=== PATIENT | male | born 1955 | race Two or more races ===

== ENCOUNTER 2019-06-13 17:38 | Inpatient (IN) | payer MEDICAID ==
[~2019-06-13] VITALS: Ht 182.9 cm; Wt 110.2 kg
[2019-06-13] MEDS ORDERED: CEFEPIME HCL 1 G in IV DEXTROSE 5% 50 ML IV ONE (18:00)
[2019-06-13] MEDS ORDERED: AZITHROMYCIN IV 500 MG in IV DEXTROSE 5% 250 ML IV ONE (18:00)
[2019-06-13] MEDS ORDERED: IV NORMAL SALINE 1000 ML BAG IV ONE (18:00)
[2019-06-13] MEDS ORDERED: VANCOMYCIN IV 1,000 MG in IV DEXTROSE 5% 250 ML IV ONE (18:00)
[2019-06-13] MEDS ORDERED: ACETAMINOPHEN ES 500 MG TABLET PO ONE (18:00)
[2019-06-13] MEDS ORDERED: ACETAMINOPHEN ES 500 MG TABLET ONE (18:18)
[2019-06-13] MEDS ORDERED: AZITHROMYCIN 500MG/ D5W 250ML IVPB **ER PYXIS ONLY IV ONE (18:19)
[2019-06-13] MEDS ORDERED: CEFEPIME HCL 1 G VIAL ONE (18:19)
[2019-06-13] MEDS ORDERED: VANCOMYCIN IV 200 ML ONE (18:19)
[2019-06-13 18:20] LABS: BASOPHILS % (AUTO) 0.6 % (0.0-2.0); EOSINOPHILS % (AUTO) 0.2 % (0.0-7.0); HEMATOCRIT 49.8 % (36.7-47.1); HEMOGLOBIN 16.8 g/dL (12.5-16.3); LYMPHOCYTES # (AUTO) 0.9 K/uL (20.0-40.0); LYMPHOCYTES % (AUTO) 27.1 % (20.5-51.5); MEAN CORPUSCULAR HEMOGLOBIN 28.8 uug (23.8-33.4); MEAN CORPUSCULAR HGB CONC 34 g/dL (32.5-36.3); MEAN CORPUSCULAR VOLUME 85.7 fL (73.0-96.2); MONOCYTES # (AUTO) 0.3 K/uL (2.0-10.0); MONOCYTES % (AUTO) 8.7 % (0.0-11.0); NEUTROPHILS % (AUTO) 63.4 % (38.5-71.5); PLATELET COUNT (AUTO) 119 K/uL (152-348); RED BLOOD CELL COUNT(AUTO) 5.81 MIL/uL (4.06-5.63); WHITE BLOOD COUNT (AUTO) 3.2 K/uL (3.6-10.2)
--- NOTE | 2019-06-13 18:27 | NUR ---
No information about pt's current medications sent with pt in transfer paperwork. I called [facility] and spoke with Andie who stated she will fax the information.
[2019-06-13 18:29] LABS: CREATININE 0.9 mg/dL (0.6-1.3); POTASSIUM 3.8 mmol/L (3.5-5.1)
[2019-06-13 18:38] LABS: MAGNESIUM 1.8 mg/dL (1.8-2.4); PHOSPHOROUS 3.5 mg/dL (2.5-4.9)
[2019-06-13 18:41] LABS: BILIRUBIN,DIRECT 0.3 mg/dL (0.0-0.2); BILIRUBIN,TOTAL 0.8 mg/dL (0.2-1.0)
[2019-06-13 19:10] LABS: *BILIRUBIN,URIN 2+ (NEGATIVE); *BLOOD, URINE NEGATIVE (NEGATIVE); *KETONES,URINE 2+ (NEGATIVE); LEUKOCYTE ESTERASE ,URINE NEGATIVE (NEGATIVE); NITRITE, URINE NEGATIVE (NEGATIVE); UGLUCOSE 1+ (NEGATIVE)
--- NOTE | 2019-06-13 19:10 | NUR ---
Pt. admitted to [facility] , under care of Dr. TORREZ Belongs List completed
[2019-06-13 19:11] LABS: FERRITIN 887 ng/mL (26-388); LACTATE DEHYDROGENASE 271 U/L (85-227)
[2019-06-13 19:34] LABS: *CLARITY,URINE SLIGHTLY HAZY (CLEAR)
[2019-06-13 19:35] LABS: *COLOR,URINE Brown (YELLOW)
[2019-06-13 19:36] LABS: MUCUS,URINE MODERATE /LPF (0-FEW); RBC,URINE 0-3 /HPF (0-3); SQUAMOUS EPITHELIAL CELL,UR FEW /HPF (NONE SEEN)
[2019-06-13] MEDS ORDERED: POLY17PO4 PO (19:55)
[2019-06-13] MEDS ORDERED: DOCU-141 PO (19:55)
[2019-06-13] MEDS ORDERED: DULO60CA45 PO (19:55)
[2019-06-13] MEDS ORDERED: BISA10SU61 RC (19:55)
[2019-06-13] MEDS ORDERED: ACET325C7 PO (19:55)
[2019-06-13] MEDS ORDERED: POTA8TAB3 PO (19:55)
[2019-06-13] MEDS ORDERED: CLON0.5T PO (19:55)
[2019-06-13] MEDS ORDERED: FURO-151 PO (19:55)
[2019-06-13] MEDS ORDERED: APIX5TAB4 PO (19:55)
[2019-06-13] MEDS ORDERED: NA P133E RC (19:55)
[2019-06-13] MEDS ORDERED: MAGN400O6 PO (19:55)
[2019-06-13] MEDS ORDERED: CARB-95 PO (19:56)
[2019-06-13] MEDS ORDERED: CLON1TAB PO (19:56)
[2019-06-13] MEDS ORDERED: BUSP5TAB3 PO (19:56)
[2019-06-13] MEDS ORDERED: ENTA200T3 PO (19:56)
--- NOTE | 2019-06-13 20:15 | NUR ---
Attempted to give report, nurse not available at this time
--- NOTE | 2019-06-13 20:44 | NUR ---
2nd attempt to give report, nurse still not available
[2019-06-13] MEDS ORDERED: FLEET ENEMA 133 ML BOTTLE RC PRN (20:45)
[2019-06-13] MEDS ORDERED: BISACODYL 10 MG SUPP.RECT RC PRN (20:45)
[2019-06-13] MEDS ORDERED: MAGNESIUM HYDROXIDE 30 ML LIQUID UDC PO PRN (20:45)
[2019-06-13] MEDS ORDERED: CLONAZEPAM 0.5 MG TABLET PO PRN (20:45)
[2019-06-13] MEDS: CARBIDOPA/LEVODOPA CR 25-100MG TABLET.SA PO SCH (22:11)
[2019-06-13] MEDS: ENTACAPONE 200 MG TABLET PO SCH (22:12)
[2019-06-14 01:34] VITALS: BP 130/87
[2019-06-14 04:38] VITALS: BP 129/78
[2019-06-14] MEDS: ENTACAPONE 200 MG TABLET PO SCH ×5 (06:10→20:52)
[2019-06-14] MEDS: CARBIDOPA/LEVODOPA CR 25-100MG TABLET.SA PO SCH ×5 (06:10→20:52)
[2019-06-14] MEDS: ACETAMINOPHEN 325 MG TABLET PO PRN ×2 (06:42→12:43)
[2019-06-14] MEDS: PANTOPRAZOLE SODIUM 40 MG TABLET.DR PO SCH (07:06)
[2019-06-14 07:17] LABS: BASOPHILS % (AUTO) 0.7 % (0.0-2.0); EOSINOPHILS % (AUTO) 0.1 % (0.0-7.0); HEMATOCRIT 46.3 % (36.7-47.1); HEMOGLOBIN 15.6 g/dL (12.5-16.3); LYMPHOCYTES # (AUTO) 0.8 K/uL (20.0-40.0); LYMPHOCYTES % (AUTO) 19.4 % (20.5-51.5); MEAN CORPUSCULAR HGB CONC 34 g/dL (32.5-36.3); MEAN CORPUSCULAR VOLUME 86.1 fL (73.0-96.2); MONOCYTES # (AUTO) 0.2 K/uL (2.0-10.0); MONOCYTES % (AUTO) 5.4 % (0.0-11.0); NEUTROPHILS % (AUTO) 74.4 % (38.5-71.5); PLATELET COUNT (AUTO) 111 K/uL (152-348); RED BLOOD CELL COUNT(AUTO) 5.38 MIL/uL (4.06-5.63)
[2019-06-14 07:35] LABS: BILIRUBIN,TOTAL 0.5 mg/dL (0.2-1.0); CREATININE 1.1 mg/dL (0.6-1.3); MAGNESIUM 1.8 mg/dL (1.8-2.4); PHOSPHOROUS 2.2 mg/dL (2.5-4.9); POTASSIUM 3.9 mmol/L (3.5-5.1); TOTAL PROTEIN, SERUM 6.5 g/dL (6.4-8.2)
[2019-06-14 07:41] LABS: THYROID STIMULATING HORMONE 1.592 mIU/mL (0.358-3.740)
[2019-06-14] MEDS: DULOXETINE 60 MG CAPSULE.DR PO SCH (08:23)
[2019-06-14] MEDS: DOCUSATE SODIUM 100 MG CAPSULE PO SCH ×2 (08:24→17:09)
[2019-06-14] MEDS: FUROSEMIDE 40 MG TABLET PO SCH (08:24)
[2019-06-14] MEDS: busPIRone 5 MG TABLET PO SCH ×3 (08:24→17:09)
[2019-06-14] MEDS: MIRALAX 17 GM POWD.PACK PO SCH (08:37)
[2019-06-14] MEDS ORDERED: Medication Not On Formulary EA (Potassium Chloride 8 MEQ) PO SCH (09:00)
[2019-06-14] MEDS ORDERED: Medication Not On Formulary EA (Apixaban (Eliquis) 5 MG) PO SCH (09:00)
[2019-06-14] MEDS ORDERED: CLONAZEPAM 0.5 MG TABLET PO ONE (09:00)
--- NOTE | 2019-06-14 09:00 | NUR ---
RECEIVED PATIENT AWAKE ALERT AND AWARE DENIES PAIN OR DISCOMFORTS AT THIS TIME ON O2 AT 2L/M WITH NO SOB AT THIS TIME HAS 2 HEPLOCKS PATENT AT THIS TIME CALL LIGHTS AND PERSONAL BELONGINGS ARE WITHIN EASY REACH MADE COMFORTABLE WILL CONTINUE TO OBSERVE.
[2019-06-14] MEDS: POTASSIUM CHLORIDE 8 MEQ TAB.PRT.SR PO SCH (09:25)
[2019-06-14] MEDS: APIXABAN 5 MG TABLET PO SCH ×2 (09:29→17:18)
[2019-06-14] MEDS ORDERED: DEXTROSE 50% 50 ML DISP.SYRIN IV PRN (11:15)
[2019-06-14] MEDS ORDERED: NEUTRA PHOS PACKET PO ONE (11:15)
[2019-06-14 11:44] VITALS: BP 124/72
[2019-06-14] MEDS: glipiZIDE 5 MG TABLET PO SCH ×2 (12:38→17:26)
[2019-06-14] MEDS: INSULIN REGULAR, HUMAN 300 UNIT/3 ML VIAL SQ PRN ×3 (12:41→22:42)
[2019-06-14] MEDS: BLOOD SUGAR DIAGNOSTIC 1 EACH STRIP VI SCH ×3 (12:50→22:20)
[2019-06-14] MEDS: SOD FERRIC GLUC COMPLX/SUCROSE 125 MG in IV NORMAL SALINE 100 ML IV SCH (14:12)
[2019-06-14 15:51] VITALS: BP 120/70
[2019-06-14] MEDS: AZITHROMYCIN IV 500 MG in IV DEXTROSE 5% 250 ML IV SCH (17:09)
--- NOTE | 2019-06-14 18:00 | NUR ---
IV ATB GIVEN ORDERED TOLERATED WELL WITH NO ADVERSE OR ALLERGIC REACTIONS AT THIS TIME WILL CONTINUE TO OBSERVE
[2019-06-14 20:00] VITALS: BP 117/77
[2019-06-15] VITALS: BP 116/69
[2019-06-15 04:00] VITALS: BP 138/78
[2019-06-15] MEDS: ACETAMINOPHEN 325 MG TABLET PO PRN ×2 (07:01→17:07)
[2019-06-15] MEDS: CARBIDOPA/LEVODOPA CR 25-100MG TABLET.SA PO SCH ×5 (07:01→20:20)
[2019-06-15] MEDS: PANTOPRAZOLE SODIUM 40 MG TABLET.DR PO SCH (07:01)
[2019-06-15] MEDS: ENTACAPONE 200 MG TABLET PO SCH ×5 (07:01→20:20)
[2019-06-15] MEDS: BLOOD SUGAR DIAGNOSTIC 1 EACH STRIP VI SCH ×4 (07:08→21:04)
[2019-06-15] MEDS: glipiZIDE 5 MG TABLET PO SCH ×2 (07:50→16:23)
--- NOTE | 2019-06-15 08:00 | NUR ---
RECEIVED PATIENT AWAKE ALERT AND VERBALLY RESPONSIVE ABLE TO MAKE SIMPLE NEEDS KNOWN BUT REQUIRES MAX ASSIST FOR ALL ADL.DENIES PAIN OR DISCOMFORTS AT THIS TIME CALL LIGHTS AND PERSONAL BELONGINGS ARE WITHIN EASY REACH REMAIN ON O2 WITH NO SHORTNESS OF BREATH AT THIS TIME MADE COMFORTABLE WILL CONTINUE TO OBSERVE.
[2019-06-15] MEDS: busPIRone 5 MG TABLET PO SCH ×3 (08:10→16:24)
[2019-06-15] MEDS: POTASSIUM CHLORIDE 8 MEQ TAB.PRT.SR PO SCH (08:10)
[2019-06-15] MEDS: FUROSEMIDE 40 MG TABLET PO SCH (08:10)
[2019-06-15] MEDS: DULOXETINE 60 MG CAPSULE.DR PO SCH (08:10)
[2019-06-15] MEDS: DOCUSATE SODIUM 100 MG CAPSULE PO SCH ×2 (08:10→16:23)
[2019-06-15] MEDS: MIRALAX 17 GM POWD.PACK PO SCH (08:11)
[2019-06-15] MEDS: APIXABAN 5 MG TABLET PO SCH ×2 (08:42→16:26)
[2019-06-15 12:00] VITALS: BP 131/75
[2019-06-15] MEDS: INSULIN REGULAR, HUMAN 300 UNIT/3 ML VIAL SQ PRN ×3 (12:38→21:05)
--- NOTE | 2019-06-15 13:00 | NUR ---
PATIENT IS AFEBRILE AT THIS TIME DENIES PAIN OR DISCOMFORTS ASSISTED NEEDED REMAIN ON O2 WITH NO SHORTNESS OF BREATH AT THIS TIME.MADE COMFORTABLE REMAIN ON ISOLATION AND PRECAUTIONS ORDERED WILL CONTINUE TO OBSERVE.
[2019-06-15] MEDS: SOD FERRIC GLUC COMPLX/SUCROSE 125 MG in IV NORMAL SALINE 100 ML IV SCH (13:34)
[2019-06-15 16:00] VITALS: BP 140/89
[2019-06-15] MEDS: AZITHROMYCIN IV 500 MG in IV DEXTROSE 5% 250 ML IV SCH (17:01)
--- NOTE | 2019-06-15 17:07 | NUR ---
noted that patient is febrile with temp of 100.9 cooling measures started medicated with Tylenol as ordered patient made comfortable will continue to observe.
--- NOTE | 2019-06-15 18:25 | NUR ---
DR SHIELDS AWARE OF PATIENT WITH ON AND OFF FEVER WITH NO NEW ORDERS AT THIS TIME
[2019-06-15 21:35] VITALS: BP 120/86
[2019-06-16 00:58] VITALS: BP 140/86
[2019-06-16] MEDS: BENZOCAINE/MENTH/CETYLPYRD LOZENGE MM PRN ×2 (04:00→20:44)
[2019-06-16 05:16] VITALS: BP 140/72
[2019-06-16] MEDS: PANTOPRAZOLE SODIUM 40 MG TABLET.DR PO SCH (06:11)
[2019-06-16] MEDS: ENTACAPONE 200 MG TABLET PO SCH ×5 (06:11→20:43)
[2019-06-16] MEDS: CARBIDOPA/LEVODOPA CR 25-100MG TABLET.SA PO SCH ×5 (06:11→20:43)
[2019-06-16 06:53] LABS: LYMPHOCYTES # (AUTO) 0.6 K/uL (20.0-40.0)
[2019-06-16] MEDS: BLOOD SUGAR DIAGNOSTIC 1 EACH STRIP VI SCH ×4 (06:54→20:54)
[2019-06-16 07:04] LABS: BASOPHILS % (AUTO) 0.3 % (0.0-2.0); HEMATOCRIT 46.3 % (36.7-47.1); HEMOGLOBIN 15.4 g/dL (12.5-16.3); LYMPHOCYTES % (AUTO) 10.4 % (20.5-51.5); MEAN CORPUSCULAR HEMOGLOBIN 28.7 uug (23.8-33.4); MEAN CORPUSCULAR HGB CONC 33 g/dL (32.5-36.3); MEAN CORPUSCULAR VOLUME 86.3 fL (73.0-96.2); MONOCYTES # (AUTO) 0.4 K/uL (2.0-10.0); MONOCYTES % (AUTO) 6.2 % (0.0-11.0); NEUTROPHILS # (AUTO) 4.8 K/uL (1.8-8.9); NEUTROPHILS % (AUTO) 83.1 % (38.5-71.5); PLATELET COUNT (AUTO) 137 K/uL (152-348); RED BLOOD CELL COUNT(AUTO) 5.37 MIL/uL (4.06-5.63); WHITE BLOOD COUNT (AUTO) 5.8 K/uL (3.6-10.2)
[2019-06-16 07:12] LABS: CREATININE 0.9 mg/dL (0.6-1.3); MAGNESIUM 1.7 mg/dL (1.8-2.4); PHOSPHOROUS 1.6 mg/dL (2.5-4.9); POTASSIUM 3.6 mmol/L (3.5-5.1)
--- NOTE | 2019-06-16 07:30 | NUR ---
PATIENT RECEIVED IN BED AWAKE ALERT AND ORIENTED DENIES PAIN OR DISCOMFORTS AT THIS TIME ON O2 AT 2L/M BY NASAL CANULLA WITH NO SOB AT THIS TIME ASSISTED NEEDED CALL LIGHTS AND PERSONAL BELONGINGS ARE WITHIN EASY REACH MADE COMFORTABLE AND WILL CONTINUE TO OBSERVE.
[2019-06-16] MEDS: APIXABAN 5 MG TABLET PO SCH ×2 (08:30→18:09)
[2019-06-16] MEDS: glipiZIDE 5 MG TABLET PO SCH ×2 (08:30→17:13)
[2019-06-16] MEDS: INSULIN REGULAR, HUMAN 300 UNIT/3 ML VIAL SQ PRN ×4 (08:31→21:02)
[2019-06-16] MEDS: DULOXETINE 60 MG CAPSULE.DR PO SCH (08:32)
[2019-06-16] MEDS: busPIRone 5 MG TABLET PO SCH ×3 (08:32→16:51)
[2019-06-16] MEDS: POTASSIUM CHLORIDE 8 MEQ TAB.PRT.SR PO SCH (08:32)
[2019-06-16] MEDS: ACETAMINOPHEN 325 MG TABLET PO PRN ×2 (08:32→20:43)
[2019-06-16] MEDS: MIRALAX 17 GM POWD.PACK PO SCH (08:32)
[2019-06-16] MEDS: FUROSEMIDE 40 MG TABLET PO SCH (08:32)
[2019-06-16] MEDS: DOCUSATE SODIUM 100 MG CAPSULE PO SCH ×2 (08:32→16:51)
--- NOTE | 2019-06-16 10:00 | NUR ---
PATIENT IS AWAKE ALERT AND ORIENTED COMPLAINING C/O UNABLE TO BREATH SATURATION CHECKED AND ITS 92-93 HE IS ON PO2 AT 2L/M BY NASAL CANULLA DR BLAKE HERE TO SEE PATIENT NOTIFIED WITH NO NEW ORDERS PATIENT REASSURED
[2019-06-16] MEDS ORDERED: POTASSIUM PHOSPHATE MM 15 MMOL in IV NORMAL SALINE 250 ML IV ONE (10:15)
[2019-06-16 11:30] VITALS: BP 132/78
[2019-06-16] MEDS: MAGNESIUM SULFATE/D5W 100 ML IV SCH ×2 (11:44→12:37)
--- NOTE | 2019-06-16 15:50 | NUR ---
IN BED SLEEPING ON AND OFF AFEBRILE WITH NO C/O AT THIS TIME
[2019-06-16 16:00] VITALS: BP 122/84
--- NOTE | 2019-06-16 17:00 | NUR ---
SODIUM PHOS REMAINS IN PROGRESS ORDERED WITH NO ADVERSE EFFECTS ATB CHANGED TO ORAL MADE COMFORTABLE WILL OBSERVE
[2019-06-16] MEDS: AZITHROMYCIN 250 MG TABLET PO SCH (18:08)
--- NOTE | 2019-06-16 20:00 | NUR ---
Patient received awake alert and fully oriented. SBAR report received from AM nurse. Patient is AO x 4. Able to answer all questions appropriately. Stable with no signs of cardio respiratory distress. Kept on O2 2 LPM. Afebrile. Full assessment to be recorded, per protocol. Covid 19 precautions followed strictly. Sinus Rhythm on Tele at 81. Will continue to monitor.
[2019-06-16 20:05] VITALS: BP 144/93
[2019-06-16] MEDS: CLONAZEPAM 1 MG TABLET PO PRN (20:43)
--- NOTE | 2019-06-16 21:00 | NUR ---
All due PO meds given, tolerated well. Patient continues to be stable at this time. Afebrile, respirations even and unlabored and not in any active distress. Pt with no BM, will re-assess in AM and administer PRN meds as needed. Will continue to monitor.
--- NOTE | 2019-06-16 22:00 | NUR ---
Seen and examined by Dr. Rivers and Rahat with new orders noted.
[2019-06-16] MEDS: HYDROXYCHLOROQUINE SULFATE 200 MG TABLET PO SCH (23:09)
[2019-06-17] VITALS: BP 132/87
--- NOTE | 2019-06-17 03:02 | NUR ---
Patient is resting in bed. No signs of any distress. Monitored on tele, no changes at this time.
[2019-06-17 04:00] VITALS: BP 135/79
[2019-06-17] MEDS ORDERED: Z GUARD REMEDY PASTE 57 GM TUBE TOP PRN (04:45)
[2019-06-17] MEDS: ENTACAPONE 200 MG TABLET PO SCH ×5 (06:07→21:08)
[2019-06-17] MEDS: CARBIDOPA/LEVODOPA CR 25-100MG TABLET.SA PO SCH ×5 (06:07→21:08)
[2019-06-17] MEDS: ACETAMINOPHEN 325 MG TABLET PO PRN (06:07)
[2019-06-17] MEDS: PANTOPRAZOLE SODIUM 40 MG TABLET.DR PO SCH (06:07)
[2019-06-17] MEDS: glipiZIDE 5 MG TABLET PO SCH ×2 (06:07→16:44)
[2019-06-17] MEDS: BLOOD SUGAR DIAGNOSTIC 1 EACH STRIP VI SCH ×4 (06:19→21:47)
--- NOTE | 2019-06-17 06:48 | NUR ---
Patient remained stable throughout shift. However, this morning patient verbalized that he did not sleep well, he usually receives an extra dose of Klonopin prior hospitalization and he thinks its the reason why he did not sleep well. Will endorse to AM shift to follow up with MD this morning. Klonopin PRN x 1 given last night. Tylenol 650mg PRN given x 2 for mild aches. Pt kept on O2, increased to 3LPM via NC throughout shift and saturating at 94%. Pt had no bowel movement, but able to get smear of bowel. Stool OB sent to lab. Pt also noted with flushed face, but afebrile and denies feeling warm. VS stable otherwise. Normal Sinus rhythm on tele on the 70s. Will endorse accordingly.
[2019-06-17 07:21] LABS: BASOPHILS % (AUTO) 0.3 % (0.0-2.0); EOSINOPHILS % (AUTO) 0.5 % (0.0-7.0); HEMATOCRIT 46.4 % (36.7-47.1); HEMOGLOBIN 15.4 g/dL (12.5-16.3); LYMPHOCYTES # (AUTO) 0.8 K/uL (20.0-40.0); LYMPHOCYTES % (AUTO) 18.8 % (20.5-51.5); MEAN CORPUSCULAR HEMOGLOBIN 28.5 uug (23.8-33.4); MEAN CORPUSCULAR HGB CONC 33 g/dL (32.5-36.3); MEAN CORPUSCULAR VOLUME 86.3 fL (73.0-96.2); MONOCYTES # (AUTO) 0.3 K/uL (2.0-10.0); MONOCYTES % (AUTO) 7.9 % (0.0-11.0); NEUTROPHILS # (AUTO) 3.2 K/uL (1.8-8.9); NEUTROPHILS % (AUTO) 72.5 % (38.5-71.5); PLATELET COUNT (AUTO) 166 K/uL (152-348); RED BLOOD CELL COUNT(AUTO) 5.38 MIL/uL (4.06-5.63); WHITE BLOOD COUNT (AUTO) 4.4 K/uL (3.6-10.2)
[2019-06-17 07:26] LABS: CREATININE 0.9 mg/dL (0.6-1.3); PHOSPHOROUS 2.5 mg/dL (2.5-4.9); POTASSIUM 3.6 mmol/L (3.5-5.1)
[2019-06-17] MEDS: APIXABAN 5 MG TABLET PO SCH ×2 (08:55→17:05)
[2019-06-17] MEDS: DOCUSATE SODIUM 100 MG CAPSULE PO SCH ×2 (08:56→16:43)
[2019-06-17] MEDS: POTASSIUM CHLORIDE 8 MEQ TAB.PRT.SR PO SCH (08:56)
[2019-06-17] MEDS: METFORMIN HCL 500 MG TABLET PO SCH ×2 (08:56→17:09)
[2019-06-17] MEDS: FUROSEMIDE 40 MG TABLET PO SCH (08:56)
[2019-06-17] MEDS: DULOXETINE 60 MG CAPSULE.DR PO SCH (08:56)
[2019-06-17] MEDS: BENZOCAINE/MENTH/CETYLPYRD LOZENGE MM PRN ×3 (08:56→17:09)
[2019-06-17] MEDS: busPIRone 5 MG TABLET PO SCH ×3 (08:57→16:43)
[2019-06-17] MEDS: MIRALAX 17 GM POWD.PACK PO SCH (08:57)
--- NOTE | 2019-06-17 09:00 | NUR ---
RECEIVED IN BED AWAKE ALERT AND ORIENTED ABLE TO MAKE NEEDS KNOWN BUT REQUIRES MAX ASSIST FOR ALL ADL NO S/S OF HYPERGLYCEMIC REACTIONS AT THIS TIME.HAS INTERMITTENT COUGH EPISODES CALL LIGHTS AND PERSONAL BELONGINGS ARE WITHIN EASY REACH AT THIS TIME WILL CONTINUE TO OBSERVE.
[2019-06-17] MEDS: HYDROXYCHLOROQUINE SULFATE 200 MG TABLET PO SCH ×2 (09:24→21:08)
[2019-06-17 11:00] VITALS: BP 134/89
--- NOTE | 2019-06-17 11:23 | NUR ---
PATIENT SEEN AND EXAMINED BY DR BLAKE WITH ZAC RAM AND NOTED
[2019-06-17 11:29] LABS: *OCCULT BLOOD STOOL POSITIVE (NEGATIVE)
--- NOTE | 2019-06-17 13:38 | NUR ---
NASAL SWAB FOR COVID 19 RECHECK OBTAINED AND SENT TO THE LAB ORDERED
[2019-06-17 16:00] VITALS: BP 134/86
[2019-06-17] MEDS: INSULIN REGULAR, HUMAN 300 UNIT/3 ML VIAL SQ PRN (17:08)
[2019-06-17] MEDS: AZITHROMYCIN 250 MG TABLET PO SCH (17:09)
--- NOTE | 2019-06-17 18:00 | NUR ---
RESTING AFEBRILE DENIES DISCOMFORTS BUT REQUESTED LOZENGES GIVEN ORDERED.WILL CONTINUE TO OBSERVE
[2019-06-17 20:05] VITALS: BP 148/85
[2019-06-17] MEDS: CLOTRIMAZOLE/BETAMET DIPROP CREAM 15 GM TUBE TOP SCH (21:09)
[2019-06-17] MEDS: CLONAZEPAM 1 MG TABLET PO PRN (21:52)
[2019-06-18] VITALS: BP 134/82
[2019-06-18 04:00] VITALS: BP 153/82
[2019-06-18] MEDS ORDERED: CLONAZEPAM 1 MG TABLET PO ONE (04:00)
[2019-06-18] MEDS: ENTACAPONE 200 MG TABLET PO SCH ×5 (05:04→21:12)
[2019-06-18] MEDS: CARBIDOPA/LEVODOPA CR 25-100MG TABLET.SA PO SCH ×5 (05:04→21:13)
--- NOTE | 2019-06-18 05:25 | NUR ---
patient slept intermittently. no s/s of acute distress. denies SOB. c/o anxiety at night and administered klonopin x1 tolerated well. contacted [facility] and order received for one time order of Klonopin 1mg PO for anxiety this morning. administered and tolerated well. additional order of psych consult received and placed. all needs met and medications administered. NSR on tele monitor. will continue plan of care and endorse to morning nurse.
[2019-06-18] MEDS: PANTOPRAZOLE SODIUM 40 MG TABLET.DR PO SCH (06:03)
[2019-06-18] MEDS: BENZOCAINE/MENTH/CETYLPYRD LOZENGE MM PRN (06:20)
[2019-06-18] MEDS: BLOOD SUGAR DIAGNOSTIC 1 EACH STRIP VI SCH ×4 (06:34→21:32)
[2019-06-18] MEDS: glipiZIDE 5 MG TABLET PO SCH ×2 (06:34→17:14)
--- NOTE | 2019-06-18 07:00 | NUR ---
Received pt in bed alert awake and oriented. Able to follow commands. On O2 @ 2L sat 90%, titrated to 3L and sat 93%. Dr. Dejesus in room and examined pt, aware of increase oxygen and current saturations. Tele SR 98. Right AC and Left hand IV in place and patent. No other complaints at this time. Bed locked in lowest position with siderails 2x up. Call light and cellphone within reach. Will continue to monitor.
[2019-06-18 07:14] LABS: BASOPHILS % (AUTO) 0.3 % (0.0-2.0); EOSINOPHILS % (AUTO) 0.6 % (0.0-7.0); HEMATOCRIT 44.7 % (36.7-47.1); HEMOGLOBIN 15.1 g/dL (12.5-16.3); LYMPHOCYTES # (AUTO) 0.9 K/uL (20.0-40.0); LYMPHOCYTES % (AUTO) 18.5 % (20.5-51.5); MEAN CORPUSCULAR HEMOGLOBIN 28.9 uug (23.8-33.4); MEAN CORPUSCULAR HGB CONC 34 g/dL (32.5-36.3); MEAN CORPUSCULAR VOLUME 85.6 fL (73.0-96.2); MONOCYTES # (AUTO) 0.5 K/uL (2.0-10.0); MONOCYTES % (AUTO) 9.4 % (0.0-11.0); NEUTROPHILS # (AUTO) 3.5 K/uL (1.8-8.9); NEUTROPHILS % (AUTO) 71.2 % (38.5-71.5); PLATELET COUNT (AUTO) 227 K/uL (152-348); RED BLOOD CELL COUNT(AUTO) 5.22 MIL/uL (4.06-5.63); WHITE BLOOD COUNT (AUTO) 4.9 K/uL (3.6-10.2)
[2019-06-18 07:53] LABS: CREATININE 1.1 mg/dL (0.6-1.3); MAGNESIUM 1.9 mg/dL (1.8-2.4); PHOSPHOROUS 3.4 mg/dL (2.5-4.9); POTASSIUM 3.9 mmol/L (3.5-5.1)
[2019-06-18] MEDS: MIRALAX 17 GM POWD.PACK PO SCH ×2 (08:36→09:15)
[2019-06-18] MEDS: POTASSIUM CHLORIDE 8 MEQ TAB.PRT.SR PO SCH (08:39)
[2019-06-18] MEDS: HYDROXYCHLOROQUINE SULFATE 200 MG TABLET PO SCH ×2 (08:40→17:14)
[2019-06-18] MEDS: busPIRone 5 MG TABLET PO SCH ×3 (08:41→18:23)
[2019-06-18] MEDS: DULOXETINE 60 MG CAPSULE.DR PO SCH (08:41)
[2019-06-18] MEDS: DOCUSATE SODIUM 100 MG CAPSULE PO SCH ×2 (08:41→21:12)
[2019-06-18] MEDS: METFORMIN HCL 500 MG TABLET PO SCH ×2 (08:42→18:22)
[2019-06-18] MEDS: CLOTRIMAZOLE/BETAMET DIPROP CREAM 15 GM TUBE TOP SCH ×2 (08:42→21:13)
[2019-06-18] MEDS: FUROSEMIDE 40 MG TABLET PO SCH (08:46)
[2019-06-18] MEDS: APIXABAN 5 MG TABLET PO SCH ×2 (08:49→18:25)
--- NOTE | 2019-06-18 09:15 | NUR ---
Pt refused Miralax and stated that he had a BM yesterday. Med wasted.
[2019-06-18 11:41] VITALS: BP 126/72
[2019-06-18 16:26] VITALS: BP 124/77
--- NOTE | 2019-06-18 17:00 | NUR ---
Checked BS, 134. Pt did not eat due to tongue pain and pt received Glipizide. Gave pudding and juice, will recheck BS before giving insulin
--- NOTE | 2019-06-18 17:44 | NUR ---
Patient been complaining of pain in the tongue, unable to eat. Gave moist sponge to help with dryness but per pt, doesn't help. Upon assessment noted red raised dots on tongue but no sores around the mouth. Will inform MD
[2019-06-18] MEDS: INSULIN REGULAR, HUMAN 300 UNIT/3 ML VIAL SQ PRN (18:20)
[2019-06-18] MEDS: AZITHROMYCIN 250 MG TABLET PO SCH (18:22)
--- NOTE | 2019-06-18 18:30 | NUR ---
Gave pudding and juice to patient since he refused dinner. Gave Metformin, held insulin 2 units. Homero TORRES aware.
[2019-06-18 20:44] VITALS: BP 131/86
[2019-06-18] MEDS: NYSTATIN SUSPENSION 5 ML LIQUID UDC PO SCH (21:45)
--- NOTE | 2019-06-18 23:21 | NUR ---
nursing special services supervisor informed me that there is no nystatin available at this time. will wait for pharmacy to open up tomorrow.
[2019-06-19 00:24] VITALS: BP 151/97
[2019-06-19] MEDS: CLONAZEPAM 1 MG TABLET PO PRN (04:08)
--- NOTE | 2019-06-19 05:29 | NUR ---
no s/s of acute distress. v/s stable. denies SOB on shift. NC 4L. normal saline provided to patient for swish per ID. nystatin will be provided by pharmacy in the morning. fall precautions in place. all needs met and medications administered. will continue plan of care.
[2019-06-19 06:02] VITALS: BP 150/91
[2019-06-19] MEDS: CARBIDOPA/LEVODOPA CR 25-100MG TABLET.SA PO SCH ×5 (06:06→20:47)
[2019-06-19] MEDS: PANTOPRAZOLE SODIUM 40 MG TABLET.DR PO SCH (06:06)
[2019-06-19] MEDS: ENTACAPONE 200 MG TABLET PO SCH ×5 (06:06→20:47)
[2019-06-19] MEDS: glipiZIDE 5 MG TABLET PO SCH ×2 (06:32→16:02)
[2019-06-19] MEDS: BLOOD SUGAR DIAGNOSTIC 1 EACH STRIP VI SCH ×4 (06:54→21:10)
--- NOTE | 2019-06-19 07:41 | NUR ---
ruiz contacted for positive covid-19 results at [facility].
--- NOTE | 2019-06-19 08:15 | NUR ---
Received patient in bed, awake and verbally responsive. No signs of distress noted. No SOB. Afebrile. No complain of Pain at this time. On contact and droplet Isolation for positive covid 19. Proper PPE strictly Observed. Will continue to monitor.
[2019-06-19] MEDS: busPIRone 5 MG TABLET PO SCH ×3 (08:34→17:05)
[2019-06-19] MEDS: DOCUSATE SODIUM 100 MG CAPSULE PO SCH ×2 (08:34→20:48)
[2019-06-19] MEDS: HYDROXYCHLOROQUINE SULFATE 200 MG TABLET PO SCH ×2 (08:35→16:04)
[2019-06-19] MEDS: POTASSIUM CHLORIDE 8 MEQ TAB.PRT.SR PO SCH (08:35)
[2019-06-19] MEDS: DULOXETINE 60 MG CAPSULE.DR PO SCH (08:35)
[2019-06-19] MEDS: FUROSEMIDE 40 MG TABLET PO SCH (08:35)
[2019-06-19] MEDS: METFORMIN HCL 500 MG TABLET PO SCH ×2 (08:35→17:06)
[2019-06-19] MEDS: NYSTATIN SUSPENSION 5 ML LIQUID UDC PO SCH ×4 (08:36→20:50)
[2019-06-19] MEDS: CLOTRIMAZOLE/BETAMET DIPROP CREAM 15 GM TUBE TOP SCH ×2 (08:46→20:48)
[2019-06-19] MEDS: APIXABAN 5 MG TABLET PO SCH ×2 (08:54→17:05)
[2019-06-19] MEDS: BENZOCAINE/MENTH/CETYLPYRD LOZENGE MM PRN (10:04)
[2019-06-19 12:00] VITALS: BP 133/84
[2019-06-19 16:00] VITALS: BP 133/85
[2019-06-19] MEDS: INSULIN REGULAR, HUMAN 300 UNIT/3 ML VIAL SQ PRN (16:25)
[2019-06-19] MEDS ORDERED: NYSTATIN SUSPENSION 5 ML LIQUID UDC PO SCH (17:12)
--- NOTE | 2019-06-19 18:26 | NUR ---
Patient awake and verbally responsive. saturating 94% on 3L nasal canula, No SOB. NO complain of Pain or discomfort. Afebrile. All due medications given as ordered. Last Blood sugar is 144, 2 units given per sliding scale. Will endorse to Oncoming Nurse
[2019-06-19 21:53] VITALS: BP 126/75
[2019-06-20] MEDS: CLONAZEPAM 1 MG TABLET PO PRN ×2 (00:24→22:55)
[2019-06-20 01:28] VITALS: BP 134/69
[2019-06-20] MEDS: BENZOCAINE/MENTH/CETYLPYRD LOZENGE MM PRN (03:49)
[2019-06-20 04:37] VITALS: BP 135/87
[2019-06-20] MEDS: ENTACAPONE 200 MG TABLET PO SCH ×4 (05:51→17:07)
[2019-06-20] MEDS: CARBIDOPA/LEVODOPA CR 25-100MG TABLET.SA PO SCH ×5 (05:51→22:55)
[2019-06-20] MEDS: PANTOPRAZOLE SODIUM 40 MG TABLET.DR PO SCH (05:51)
--- NOTE | 2019-06-20 06:28 | NUR ---
Patient slept intermittently. No SOB. Remains afebrile. SR on Tele monitor. All needs attended. Will endorse accordingly
[2019-06-20] MEDS: BLOOD SUGAR DIAGNOSTIC 1 EACH STRIP VI SCH ×4 (06:40→21:00)
[2019-06-20] MEDS: glipiZIDE 5 MG TABLET PO SCH ×2 (06:42→17:23)
--- NOTE | 2019-06-20 07:20 | NUR ---
Received pt in bed asleep, arousable to name, able to answer questions and obey commands. On O2 @ 2L with no SOB and no distress noted at this time. IV right FA 20g HL patent and in place. Needs attended to and met. Droplet and contact isolation maintained. Call light and cellphone within reach. Bed locked in lowest position with siderails 2x up. No other complaints. Will continue to monitor.
[2019-06-20 07:51] LABS: BASOPHILS % (AUTO) 0.5 % (0.0-2.0); EOSINOPHILS # (AUTO) 0.1 K/uL (0.0-0.7); EOSINOPHILS % (AUTO) 1.7 % (0.0-7.0); HEMATOCRIT 45.1 % (36.7-47.1); HEMOGLOBIN 14.9 g/dL (12.5-16.3); LYMPHOCYTES # (AUTO) 1.1 K/uL (20.0-40.0); LYMPHOCYTES % (AUTO) 24.8 % (20.5-51.5); MEAN CORPUSCULAR HEMOGLOBIN 28.6 uug (23.8-33.4); MEAN CORPUSCULAR HGB CONC 33 g/dL (32.5-36.3); MEAN CORPUSCULAR VOLUME 86.4 fL (73.0-96.2); MONOCYTES # (AUTO) 0.6 K/uL (2.0-10.0); MONOCYTES % (AUTO) 13.9 % (0.0-11.0); NEUTROPHILS # (AUTO) 2.7 K/uL (1.8-8.9); NEUTROPHILS % (AUTO) 59.1 % (38.5-71.5); RED BLOOD CELL COUNT(AUTO) 5.22 MIL/uL (4.06-5.63); WHITE BLOOD COUNT (AUTO) 4.5 K/uL (3.6-10.2)
[2019-06-20 07:52] LABS: CREATININE 0.9 mg/dL (0.6-1.3); MAGNESIUM 2.3 mg/dL (1.8-2.4); PHOSPHOROUS 3.5 mg/dL (2.5-4.9); POTASSIUM 3.9 mmol/L (3.5-5.1)
[2019-06-20 07:54] LABS: PLATELET COUNT (AUTO) 323 K/uL (152-348)
[2019-06-20] MEDS: MIRALAX 17 GM POWD.PACK PO SCH (09:00)
[2019-06-20] MEDS: DOCUSATE SODIUM 100 MG CAPSULE PO SCH ×3 (09:00→22:55)
--- NOTE | 2019-06-20 09:30 | NUR ---
BS rechecked, 108. Metformin given. Per patient he ate bkfast this AM too.
--- NOTE | 2019-06-20 09:35 | NUR ---
refused Miralax and Colace, per pt, he had a BM early this morning.
[2019-06-20] MEDS: DULOXETINE 60 MG CAPSULE.DR PO SCH (09:37)
[2019-06-20] MEDS: POTASSIUM CHLORIDE 8 MEQ TAB.PRT.SR PO SCH (09:37)
[2019-06-20] MEDS: busPIRone 5 MG TABLET PO SCH ×3 (09:37→17:06)
[2019-06-20] MEDS: FUROSEMIDE 40 MG TABLET PO SCH (09:38)
[2019-06-20] MEDS: HYDROXYCHLOROQUINE SULFATE 200 MG TABLET PO SCH ×2 (09:38→17:07)
[2019-06-20] MEDS: METFORMIN HCL 500 MG TABLET PO SCH ×2 (09:38→17:24)
[2019-06-20] MEDS: APIXABAN 5 MG TABLET PO SCH ×2 (09:39→17:17)
[2019-06-20] MEDS: CLOTRIMAZOLE/BETAMET DIPROP CREAM 15 GM TUBE TOP SCH ×2 (09:40→22:55)
[2019-06-20] MEDS: NYSTATIN SUSPENSION 5 ML LIQUID UDC PO SCH ×4 (09:40→22:55)
[2019-06-20 11:34] VITALS: BP 133/86
[2019-06-20] MEDS: INSULIN REGULAR, HUMAN 300 UNIT/3 ML VIAL SQ PRN ×2 (12:49→17:31)
--- NOTE | 2019-06-20 13:50 | NUR ---
Pt complained that he can't breath, checked v/s normal and O2 @ 2L sat 95%. Patient stated that he's anxious and feeling like having a panic attack. Asked for his usual home med Klonopin 0.5mg. Informed Dr. Rickey Dunaway. Will continue to monitor.
[2019-06-20] MEDS ORDERED: CLONAZEPAM 0.5 MG TABLET PO ONE (14:30)
[2019-06-20 15:02] VITALS: BP 146/82
--- NOTE | 2019-06-20 16:05 | NUR ---
Klonopin 0.5mg PO once give to pt for anxiety as ordered.
[2019-06-20 17:21] VITALS: BP 143/91
--- NOTE | 2019-06-20 20:00 | NUR ---
Received patient awake and alert in bed. No signs of acute distress noted. No complaints of pain or SOB. Vitals WNL. Heplock on the left forearm is intact and patent. It was noted that he was saying he was having a panic attack today and there was a psych consult pending. SR on the monitor.Safety measures initiated. Bed is low and locked, call light within reach. Will continue to monitor.
[2019-06-20 20:04] VITALS: BP 122/84
--- NOTE | 2019-06-20 23:00 | NUR ---
Psych consult with Dr. Phoenix through the IPAD. Patient is alert and able to answer physicians questions. New orders received. Will continue to monitor.
[2019-06-21] MEDS ORDERED: TRAZODONE 50 MG TABLET ONE
[2019-06-21 00:04] VITALS: BP 124/84
[2019-06-21] MEDS ORDERED: ENTACAPONE 200 MG TABLET ONE (00:07)
[2019-06-21] MEDS: ENTACAPONE 200 MG TABLET PO SCH ×6 (00:23→21:57)
[2019-06-21] MEDS: TRAZODONE 50 MG TABLET PO SCH ×2 (00:24→21:57)
--- NOTE | 2019-06-21 00:30 | NUR ---
Comptan and trazadone given late due to medication not being available on unit, had to get medication from nursing malt liquors sales supervisor. Patient tolerating medications well.
[2019-06-21 04:04] VITALS: BP 122/76
[2019-06-21] MEDS: PANTOPRAZOLE SODIUM 40 MG TABLET.DR PO SCH (06:03)
[2019-06-21] MEDS: CARBIDOPA/LEVODOPA CR 25-100MG TABLET.SA PO SCH ×5 (06:03→21:57)
[2019-06-21] MEDS: BLOOD SUGAR DIAGNOSTIC 1 EACH STRIP VI SCH ×4 (06:33→21:10)
[2019-06-21] MEDS: glipiZIDE 5 MG TABLET PO SCH ×2 (06:33→16:30)
[2019-06-21 06:46] LABS: BASOPHILS % (AUTO) 0.4 % (0.0-2.0); EOSINOPHILS # (AUTO) 0.1 K/uL (0.0-0.7); EOSINOPHILS % (AUTO) 1.8 % (0.0-7.0); HEMATOCRIT 43.9 % (36.7-47.1); HEMOGLOBIN 14.9 g/dL (12.5-16.3); LYMPHOCYTES # (AUTO) 1.2 K/uL (20.0-40.0); LYMPHOCYTES % (AUTO) 26.5 % (20.5-51.5); MEAN CORPUSCULAR HEMOGLOBIN 29.1 uug (23.8-33.4); MEAN CORPUSCULAR HGB CONC 34 g/dL (32.5-36.3); MEAN CORPUSCULAR VOLUME 85.6 fL (73.0-96.2); MONOCYTES # (AUTO) 0.6 K/uL (2.0-10.0); MONOCYTES % (AUTO) 12.8 % (0.0-11.0); NEUTROPHILS # (AUTO) 2.8 K/uL (1.8-8.9); NEUTROPHILS % (AUTO) 58.5 % (38.5-71.5); PLATELET COUNT (AUTO) 390 K/uL (152-348); RED BLOOD CELL COUNT(AUTO) 5.13 MIL/uL (4.06-5.63); WHITE BLOOD COUNT (AUTO) 4.7 K/uL (3.6-10.2)
[2019-06-21 07:04] LABS: CREATININE 0.9 mg/dL (0.6-1.3); MAGNESIUM 2.2 mg/dL (1.8-2.4); PHOSPHOROUS 3.6 mg/dL (2.5-4.9); POTASSIUM 3.9 mmol/L (3.5-5.1)
[2019-06-21] MEDS: CLONAZEPAM 0.5 MG TABLET PO SCH ×3 (08:10→17:44)
[2019-06-21] MEDS: DULOXETINE 60 MG CAPSULE.DR PO SCH (08:10)
[2019-06-21] MEDS: FUROSEMIDE 40 MG TABLET PO SCH (08:10)
[2019-06-21] MEDS: METFORMIN HCL 500 MG TABLET PO SCH ×2 (08:10→17:44)
[2019-06-21] MEDS: APIXABAN 5 MG TABLET PO SCH ×2 (08:10→18:14)
[2019-06-21] MEDS: POTASSIUM CHLORIDE 8 MEQ TAB.PRT.SR PO SCH (08:10)
[2019-06-21] MEDS: DOCUSATE SODIUM 100 MG CAPSULE PO SCH ×2 (08:10→21:57)
[2019-06-21] MEDS: HYDROXYCHLOROQUINE SULFATE 200 MG TABLET PO SCH (08:11)
[2019-06-21] MEDS: NYSTATIN SUSPENSION 5 ML LIQUID UDC PO SCH ×4 (08:11→21:57)
[2019-06-21] MEDS: CLOTRIMAZOLE/BETAMET DIPROP CREAM 15 GM TUBE TOP SCH ×2 (08:11→21:00)
[2019-06-21] MEDS: MIRALAX 17 GM POWD.PACK PO SCH (08:11)
[2019-06-21 08:30] VITALS: BP 134/77
[2019-06-21] MEDS ORDERED: BENZOCAINE/MENTH/CETYLPYRD LOZENGE MM PRN (10:30)
[2019-06-21 16:31] VITALS: BP 137/77
[2019-06-21] MEDS: INSULIN REGULAR, HUMAN 300 UNIT/3 ML VIAL SQ PRN (18:13)
[2019-06-21 20:00] VITALS: BP 124/81
[2019-06-22] VITALS: BP 126/81
[2019-06-22 04:00] VITALS: BP 136/72
--- NOTE | 2019-06-22 05:55 | NUR ---
patient slept intermittently. a/o x3. no s/s of acute distress. no SOB. denies chest pain. Sinus Tach on monitor. 3L on NC. v/s stable. afebrile. safety measures in place. will continue to monitor.
[2019-06-22] MEDS: CARBIDOPA/LEVODOPA CR 25-100MG TABLET.SA PO SCH ×3 (06:24→13:09)
[2019-06-22] MEDS: ENTACAPONE 200 MG TABLET PO SCH ×5 (06:24→21:19)
[2019-06-22] MEDS: PANTOPRAZOLE SODIUM 40 MG TABLET.DR PO SCH (06:24)
[2019-06-22] MEDS: glipiZIDE 5 MG TABLET PO SCH ×2 (06:31→16:58)
[2019-06-22] MEDS: BLOOD SUGAR DIAGNOSTIC 1 EACH STRIP VI SCH ×4 (06:54→21:33)
[2019-06-22 08:00] VITALS: BP 137/84
[2019-06-22] MEDS: MIRALAX 17 GM POWD.PACK PO SCH (09:00)
[2019-06-22] MEDS: DOCUSATE SODIUM 100 MG CAPSULE PO SCH ×2 (09:00→21:00)
[2019-06-22] MEDS: POTASSIUM CHLORIDE 8 MEQ TAB.PRT.SR PO SCH (09:23)
[2019-06-22] MEDS: METFORMIN HCL 500 MG TABLET PO SCH ×2 (09:23→17:03)
[2019-06-22] MEDS: FUROSEMIDE 40 MG TABLET PO SCH (09:23)
[2019-06-22] MEDS: CLONAZEPAM 0.5 MG TABLET PO SCH ×3 (09:24→18:40)
[2019-06-22] MEDS: NYSTATIN SUSPENSION 5 ML LIQUID UDC PO SCH ×4 (09:25→21:19)
[2019-06-22] MEDS: CLOTRIMAZOLE/BETAMET DIPROP CREAM 15 GM TUBE TOP SCH ×2 (09:26→21:21)
[2019-06-22] MEDS: DULOXETINE 60 MG CAPSULE.DR PO SCH (09:27)
[2019-06-22] MEDS: APIXABAN 5 MG TABLET PO SCH ×2 (09:30→17:04)
--- NOTE | 2019-06-22 10:00 | NUR ---
ENGROSSER cleaned and changed pt and stated that he had big loose, watery, light brown stool.
[2019-06-22] MEDS: BENZOCAINE/MENTH/CETYLPYRD LOZENGE MM PRN (11:56)
[2019-06-22] MEDS ORDERED: CARB-93 PO (15:49)
[2019-06-22] MEDS ORDERED: CARB-94 PO (15:50)
[2019-06-22 16:00] VITALS: BP 128/70
[2019-06-22] MEDS: CARBIDOPA/LEVODOPA 25-250MG TABLET PO SCH ×2 (17:03→21:19)
[2019-06-22] MEDS: CARBIDOPA/LEVODOPA 25-100MG TABLET PO SCH ×2 (17:03→21:19)
[2019-06-22] MEDS: INSULIN REGULAR, HUMAN 300 UNIT/3 ML VIAL SQ PRN (17:05)
--- NOTE | 2019-06-22 18:30 | NUR ---
Received pt in bed alert, awake, and oriented. On O2 @ 3L with no complaints of SOB. Stated tongue is better now and can eat meals. IV on right FA 20g flushed and patent. No other complaints at this time. Bed locked in lowest position with siderails 2xup. Call light and phone within reach. Bed alarm on. Will continue to monitor.
--- NOTE | 2019-06-22 19:20 | NUR ---
Pt remained afebrile throughout shift. Also did not have any other loose watery bowel movements. No complaints at this time. Bed locked in lowest position with siderails 2x up. Bed alarm on. Call light and phone within reach. Will endorse to next shift.
--- NOTE | 2019-06-22 19:45 | NUR ---
Received patient asleep. Patient shows no signs or symptoms of distress at this time. Vital signs stable. No fever at this time. Bed set to lowest position. Side rails X2 are up. Patient is Sinus Tachycardia on tele monitor, low 100s. Will continue to monitor patient.
[2019-06-22 20:30] VITALS: BP 116/70
[2019-06-22] MEDS: CLONAZEPAM 1 MG TABLET PO PRN (21:19)
[2019-06-22] MEDS: TRAZODONE 50 MG TABLET PO SCH (21:19)
[2019-06-23 01:26] VITALS: BP 130/90
[2019-06-23 05:12] VITALS: BP 133/83
[2019-06-23] MEDS: CARBIDOPA/LEVODOPA 25-100MG TABLET PO SCH ×5 (06:06→20:44)
[2019-06-23] MEDS: PANTOPRAZOLE SODIUM 40 MG TABLET.DR PO SCH (06:06)
[2019-06-23] MEDS: ENTACAPONE 200 MG TABLET PO SCH ×5 (06:06→20:44)
[2019-06-23] MEDS: CARBIDOPA/LEVODOPA 25-250MG TABLET PO SCH ×5 (06:06→20:44)
[2019-06-23] MEDS: BLOOD SUGAR DIAGNOSTIC 1 EACH STRIP VI SCH ×4 (06:58→21:30)
--- NOTE | 2019-06-23 07:00 | NUR ---
Patient shows no signs or symptoms of distress at this time. Vital signs stable. Afebrile throughout the shift. Patient is NSR on tele monitor. Will endorse patient to day shift nurse in stable condition.
--- NOTE | 2019-06-23 08:30 | NUR ---
PATIENT EATING BREAKFAST RESTING COMFORTABLY.
[2019-06-23] MEDS: NYSTATIN SUSPENSION 5 ML LIQUID UDC PO SCH ×4 (09:55→20:44)
[2019-06-23] MEDS: POTASSIUM CHLORIDE 8 MEQ TAB.PRT.SR PO SCH (09:56)
[2019-06-23] MEDS: FUROSEMIDE 40 MG TABLET PO SCH (09:56)
[2019-06-23] MEDS: DULOXETINE 60 MG CAPSULE.DR PO SCH (09:56)
[2019-06-23] MEDS: DOCUSATE SODIUM 100 MG CAPSULE PO SCH ×2 (09:56→20:44)
[2019-06-23] MEDS: METFORMIN HCL 500 MG TABLET PO SCH ×2 (09:56→18:06)
[2019-06-23] MEDS: APIXABAN 5 MG TABLET PO SCH ×2 (09:58→18:07)
[2019-06-23] MEDS: MIRALAX 17 GM POWD.PACK PO SCH (09:58)
[2019-06-23] MEDS: CLOTRIMAZOLE/BETAMET DIPROP CREAM 15 GM TUBE TOP SCH ×2 (09:59→20:45)
[2019-06-23] MEDS: CLONAZEPAM 0.5 MG TABLET PO SCH ×3 (10:01→17:09)
[2019-06-23 11:00] VITALS: BP 133/89
[2019-06-23] MEDS: INSULIN REGULAR, HUMAN 300 UNIT/3 ML VIAL SQ PRN (12:30)
[2019-06-23 16:00] VITALS: BP 125/72
[2019-06-23] MEDS: glipiZIDE 5 MG TABLET PO SCH ×2 (17:04→17:11)
--- NOTE | 2019-06-23 18:46 | NUR ---
patient resting comfortably, ate dinner.
[2019-06-23 20:00] VITALS: BP 128/84
--- NOTE | 2019-06-23 20:00 | NUR ---
Received patient awake and alert. Patient shows no signs or symptoms of distress at this time. Patient is NSR on tele monitor. Vital signs stable and is afebrile at this time. Bed set to lowest position. Call light within reach. Will continue to monitor patient.
[2019-06-23] MEDS: TRAZODONE 50 MG TABLET PO SCH (20:44)
[2019-06-23] MEDS: CLONAZEPAM 1 MG TABLET PO PRN (21:02)
[2019-06-24] VITALS: BP 125/76
[2019-06-24 04:00] VITALS: BP 122/58
[2019-06-24] MEDS: ENTACAPONE 200 MG TABLET PO SCH ×3 (05:34→14:31)
[2019-06-24] MEDS: PANTOPRAZOLE SODIUM 40 MG TABLET.DR PO SCH (05:35)
[2019-06-24] MEDS: CARBIDOPA/LEVODOPA 25-250MG TABLET PO SCH ×3 (05:35→14:00)
[2019-06-24] MEDS: CARBIDOPA/LEVODOPA 25-100MG TABLET PO SCH ×3 (05:35→14:31)
[2019-06-24] MEDS: BLOOD SUGAR DIAGNOSTIC 1 EACH STRIP VI SCH ×2 (06:33→12:45)
[2019-06-24 06:47] LABS: BASOPHILS # (AUTO) 0.1 K/uL (0.0-8.0); BASOPHILS % (AUTO) 0.8 % (0.0-2.0); EOSINOPHILS % (AUTO) 0.6 % (0.0-7.0); HEMATOCRIT 46.7 % (36.7-47.1); HEMOGLOBIN 15.7 g/dL (12.5-16.3); LYMPHOCYTES # (AUTO) 1.7 K/uL (20.0-40.0); LYMPHOCYTES % (AUTO) 26.2 % (20.5-51.5); MEAN CORPUSCULAR HGB CONC 34 g/dL (32.5-36.3); MEAN CORPUSCULAR VOLUME 86.1 fL (73.0-96.2); MONOCYTES # (AUTO) 0.6 K/uL (2.0-10.0); MONOCYTES % (AUTO) 8.8 % (0.0-11.0); NEUTROPHILS # (AUTO) 4.1 K/uL (1.8-8.9); NEUTROPHILS % (AUTO) 63.6 % (38.5-71.5); PLATELET COUNT (AUTO) 468 K/uL (152-348); RED BLOOD CELL COUNT(AUTO) 5.42 MIL/uL (4.06-5.63); WHITE BLOOD COUNT (AUTO) 6.4 K/uL (3.6-10.2)
--- NOTE | 2019-06-24 06:54 | NUR ---
Patient shows no signs or symptoms of distress at this time. Patient is NSR on tele monitor. Vital signs stable and patient was afebrile all shift. Patient's O2 is 97% on 3L. Will endorse patient to day shift in stable condition.
[2019-06-24 07:19] LABS: BILIRUBIN,TOTAL 0.7 mg/dL (0.2-1.0); CREATININE 1.1 mg/dL (0.6-1.3); MAGNESIUM 2.1 mg/dL (1.8-2.4); PHOSPHOROUS 3.5 mg/dL (2.5-4.9); POTASSIUM 4.6 mmol/L (3.5-5.1); TOTAL PROTEIN, SERUM 7.8 g/dL (6.4-8.2)
[2019-06-24] MEDS: glipiZIDE 5 MG TABLET PO SCH (08:58)
[2019-06-24] MEDS: METFORMIN HCL 500 MG TABLET PO SCH (08:59)
[2019-06-24] MEDS: FUROSEMIDE 40 MG TABLET PO SCH (09:00)
[2019-06-24] MEDS: POTASSIUM CHLORIDE 8 MEQ TAB.PRT.SR PO SCH (09:00)
[2019-06-24] MEDS: CLONAZEPAM 0.5 MG TABLET PO SCH ×2 (09:00→13:00)
[2019-06-24] MEDS: DULOXETINE 60 MG CAPSULE.DR PO SCH (09:01)
[2019-06-24] MEDS: DOCUSATE SODIUM 100 MG CAPSULE PO SCH (09:02)
[2019-06-24] MEDS: MIRALAX 17 GM POWD.PACK PO SCH (09:03)
[2019-06-24] MEDS: NYSTATIN SUSPENSION 5 ML LIQUID UDC PO SCH ×2 (09:04→14:00)
[2019-06-24] MEDS: CLOTRIMAZOLE/BETAMET DIPROP CREAM 15 GM TUBE TOP SCH (09:04)
--- NOTE | 2019-06-24 11:04 | NUR ---
Clarified with Pharmacy regarding 2 orders of Sinemet. OK to give both.
[2019-06-24] MEDS: APIXABAN 5 MG TABLET PO SCH (11:10)
[2019-06-24 12:00] VITALS: BP 121/74
[2019-06-24] MEDS ORDERED: CYANOCOBALAMIN 1,000 MCG TABLET PO ONE (14:00)
--- NOTE | 2019-06-24 15:22 | NUR ---
PATIENT WAS DISCHARGED TO [facility] , PATIENT WAS IN GOOD MOOD, NO FEVER, COMPLAIN OF HOARNESS OF VOICE, PATIENT COMPLIANT WITH MEDICATION, CALLED AND SPOKE WITH RANDA GAVE REPORT
== END 2019-06-24 15:30 | DRG 720 ==
LOC: ER 17:46 → MEDSURG3 20:59 → TELE3 22:00 → TELE 06-20 18:21 → MED 06-24 09:25
PROVIDERS: ADMIT Internal Medicine; ATTEND Nurse Practitioner Acute Care
DX: A41.89 Other specified sepsis (principal); U07.1 COVID-19; G92 Toxic encephalopathy; E44.0 Moderate protein-calorie malnutrition; E11.42 Type 2 diabetes mellitus with diabetic polyneuropathy; D68.69 Other thrombophilia; G20 Parkinson's disease; J12.89 Other viral pneumonia; Z86.718 Personal history of other venous thrombosis and embolism; Z79.01 Long term (current) use of anticoagulants; Z86.711 Personal history of pulmonary embolism; E66.9 Obesity, unspecified; E78.5 Hyperlipidemia, unspecified; K76.0 Fatty (change of) liver, not elsewhere classified; N40.0 Benign prostatic hyperplasia without lower urinary tract symptoms; I50.32 Chronic diastolic (congestive) heart failure; I11.0 Hypertensive heart disease with heart failure; Z88.0 Allergy status to penicillin; G90.09 Other idiopathic peripheral autonomic neuropathy; F41.0 Panic disorder [episodic paroxysmal anxiety]; F32.9 Major depressive disorder, single episode, unspecified; E11.65 Type 2 diabetes mellitus with hyperglycemia; E11.43 Type 2 diabetes mellitus with diabetic autonomic (poly)neuropathy; F02.80 Dementia in other diseases classified elsewhere, unspecified severity, without behavioral disturbance, psychotic disturbance, mood disturbance, and anxiety; R74.0 Nonspecific elevation of levels of transaminase and lactic acid dehydrogenase [LDH]; Z68.33 Body mass index [BMI] 33.0-33.9, adult; Z79.84 Long term (current) use of oral hypoglycemic drugs
CPT/HCPCS: 36415; 70030-TC; 71045; 82378; 83550; 83605; 83615; 83690; 83735; 84100; 84443; 85025; 85730; 86140; 87040; 87086; 87400; 93005; A4217; A4663; A9150; G0378; J0456; J0692; J1815; J2916; J3370; J3475; J3490; J7030; J7050; J7060; Q0144